=== PATIENT | female | born 1960 | race Caucasian/White ===

== ENCOUNTER 2024-10-23 14:15 | Inpatient (IN) ==
--- NOTE | 2024-10-23 15:31 | XRay Report ---
EXAM: Radiograph of the Chest 1 View INDICATION: Abdominal pain. Nausea, vomiting and cough. TECHNIQUE: Frontal view of the chest. COMPARISON: 10/06/2023 FINDINGS: Lungs and pleural spaces: No consolidation or pulmonary edema. No pleural effusion or pneumothorax. Heart: Stable prominent cardiac shadow accentuated by technique. Mediastinum: Small hiatal hernia noted. Bones/joints: No fracture, erosion or dislocation. Soft tissues: No abnormality noted. No radiopaque foreign body noted. Upper abdomen: No free air subjacent to the diaphragms. IMPRESSION: No acute cardiopulmonary disease. ACT 112: Negative or not required by law. Electronically signed by Mimi Hampton 10-23-2024 3:29 PM
[2024-10-23 15:32] LABS: Influenza A virus by PCR Negative (Neg); Influenza B virus by PCR Negative (Neg); RSV by PCR Negative (Neg); SARS CoV2 RNA(COVID-19) Ceph NEGATIVE (Negative)
[2024-10-23 15:51] LABS: Albumin Globulin Ratio 1.3 (0.9-2); Albumin Level 4.3 gm/dl (3.4-5.0); BUN Creatinine Ratio 13.5 (10-20); Bilirubin,Total 0.5 mg/dl (0.2-1.0); Calcium 9.5 mg/dl (8.6-10.3); Creatinine Clr Calc Pharmacy 40.6 ml/min; Globulin 3.2 gm/dl (2.5-4.0); Potassium 3.5 mmol/L (3.5-5.1); Total Protein 7.5 gm/dl (6.0-8.3)
[2024-10-23 15:55] LABS: Basophils # (auto) 0.04 K/uL (0.00-0.20); Basophils % (auto) 0.5 %; Eosinophils # (auto) 0.24 K/uL (0.00-0.50); Eosinophils % (auto) 2.9 %; Hematocrit (blood only) 35.5 % (37.0-47.0); Immature Granulocytes # (auto) 0.02 K/uL (0.01-0.20); Immature Granulocytes % (auto) 0.2 %; Mean Corpuscular Hgb Conc 33.8 g/dL (32.0-36.0); Mean Corpuscular Volume 88.8 fL (80.0-100.0); Monocytes # (auto) 0.65 K/uL (0.11-0.59); Monocytes % (auto) 7.8 %; Neutrophils # (auto) 5.87 K/uL (1.40-6.50); Neutrophils % (auto) 70.6 %; Platelet Count 261 K/uL (130-400); RDW Coefficient of Variation 12.9 % (11.5-14.5); RDW Standard Deviation 41.8 fL (36.4-46.3); White Blood Count 8.32 K/ul (4.8-10.8)
[2024-10-23 15:57] LABS: Troponin I High Sensitivity 9.2 pg/ml (0-14)
--- NOTE | 2024-10-23 16:52 | Ultrasound Report ---
EXAM: US Abdomen Limited Right Upper Quadrant INDICATION: Postprandial pain, nausea and vomiting. TECHNIQUE: Real-time ultrasound of the right upper quadrant with image documentation. COMPARISON: No relevant prior studies available. FINDINGS: Liver: Normal size and contour. Echogenic. No mass or ductal dilation. Gallbladder: Collapsed stone filled gallbladder. The wall is mildly thickened at 4 mm. The common bile duct is dilated to 9 mm. No pericholecystic fluid. Common bile duct: No significant abnormality noted. No stones. No dilation. Pancreas: Tail obscured by gas. Remainder appears normal. Right kidney: 10.1 cm long. Normal cortical thickness and echotexture. Question trace hydronephrosis. No mass or stone. IMPRESSION: 1. Collapsed stone filled gallbladder. Mild wall thickening could reflect incomplete distention or acute cholecystitis. HIDA scan would evaluate. 2. The common bile duct is dilated to 9 mm. 3. Question mild right hydronephrosis. 4. Hepatic steatosis. ACT 112: Negative or not required by law. Electronically signed by Mimi Hampton 10-23-2024 4:51 PM
--- NOTE | 2024-10-23 17:12 | Emergency Department Note ---
ED Visit Note I was consulted by the Advanced Practice Provider. I personally made/approved the management plan and take responsibility for the patient management. I performed a substantive portion of the visit. This includes the aspects of: -MDM. Patient has acute kidney injury. Hydration ordered. Surgery was consulted and medicine will be admitting the patient. -I independently interpreted the following studies: Gallbladder ultrasound reveals findings concerning for cholecystitis. Stones present. .
--- NOTE | 2024-10-23 17:14 | Electrocardiogram Report ---
Test Reason : Blood Pressure : */* mmHG Vent. Rate : 77 BPM Atrial Rate : 77 BPM P-R Int : 154 ms QRS Dur : 98 ms QT Int : 424 ms P-R-T Axes : 18 -28 74 degrees QTcB Int : 479 ms Sinus rhythm with occasional Premature ventricular complexes Moderate voltage criteria for LVH, may be normal variant Poor R wave progression, consider anterior [place] vs. lead placement vs. LVH Borderline ECG When compared with ECG of 06-Oct-2023 13:10, No significant change was found Confirmed by Cornell Zaidi ([id number]) on 10/23/2024 5:14:26 PM Referred By: REFERRED SELF Confirmed By: Cornell Zaidi
[2024-10-23] MEDS: SODIUM CHLORIDE 0.9% 1,000 ML IV ONE (17:24)
--- NOTE | 2024-10-23 17:29 | Emergency Department Note ---
ED Provider Note History of Present Illness Chief Complaint: Flu Like Symptoms Stated Complaint: VOMITING, FELT FAINT, COUGH, HOT/SWEATS Time Seen by Provider: 10/23/24 14:54 Source: patient Mode of arrival: ambulatory Limitations: no limitations Patient is a 64-year-old female who presents to the emergency department with complaints of an episode today where she started to feel faint, was having upper abdominal pain and was diaphoretic. Patient notes that after that episode she vomited once and since then has been feeling better. Patient notes that she has had ongoing episodes like that but is unsure what is causing it. Patient also notes that she has had a cough for approximately a week as well. Patient notes that she has a history of "gallbladder issues". Home Medications Medication Instructions Recorded Confirmed Type meclizine 12.5 mg tablet 12.5 mg PO BID PRN dizziness #14 10/06/23 10/23/24 Rx tabs amlodipine 10 mg-benazepril 40 mg 1 cap PO PM 10/23/24 10/23/24 History capsule carvedilol 25 mg tablet 25 mg PO PM 10/23/24 10/23/24 History chlorthalidone 25 mg tablet 25 mg PO PM 10/23/24 10/23/24 History Allergies Allergy/AdvReac Type Severity Reaction Status Date / Time No Known Allergies Allergy Unverified 10/23/24 15:09 Past Med/Surg History Problem List (Updated 10/23/24 @ 21:26 by STEFANIE Easley) Bicuspid aortic valve Hypertension DEBORAH (acute kidney injury) (Acute) Hydronephrosis, right Acute cholecystitis (Acute) Medical History (Updated 10/23/24 @ 21:26 by STEFANIE Easley) History of nephrolithiasis Surgical History (Updated 10/23/24 @ 18:18 by Christopher Cardenas MD) History of hysterectomy Social History Smoking Status: Never smoker Preferred Language: [place] Feels Safe at Home: Yes Physical Exam Vital Signs Vital Signs - 24 hr 10/23/24 14:18 10/23/24 15:10 10/23/24 15:36 Temperature 36.7 C Temperature Source Temporal Artery Scan Pulse Rate 77 Pulse Rate [Apical] 79 Pulse Strength Normal Respiratory Rate 17 16 Respiratory Effort / Characteristics Non-Labored Spontaneous Respiratory Depth Normal Respiratory Pattern Regular Blood Pressure 146/86 H Blood Pressure [Left Arm] 151/96 H Blood Pressure Mean 106 Blood Pressure Mean [Left Arm] 114 Blood Pressure Position Sitting Pulse Oximetry 97 96 98 Oxygen Delivery Method Room Air Room Air Sepsis Recent Fever Within 48 Hours No Sepsis New/Unexplained Change in Mental Status No Sepsis Action Taken by Nursing No Action Required 10/23/24 15:55 10/23/24 16:05 10/23/24 17:46 Temperature Temperature Source Pulse Rate 71 Pulse Rate [Apical] 71 76 Pulse Strength Respiratory Rate 18 18 Respiratory Effort / Characteristics Respiratory Depth Respiratory Pattern Blood Pressure Blood Pressure [Left Arm] 132/67 147/76 H Blood Pressure Mean Blood Pressure Mean [Left Arm] 88 99 Blood Pressure Position Pulse Oximetry 97 96 Oxygen Delivery Method Sepsis Recent Fever Within 48 Hours Sepsis New/Unexplained Change in Mental Status Sepsis Action Taken by Nursing 10/23/24 19:00 10/23/24 20:09 Temperature Temperature Source Pulse Rate Pulse Rate [Apical] 71 71 Pulse Strength Respiratory Rate 16 16 Respiratory Effort / Characteristics Respiratory Depth Respiratory Pattern Blood Pressure Blood Pressure [Left Arm] 147/79 H 148/76 H Blood Pressure Mean Blood Pressure Mean [Left Arm] 101 100 Blood Pressure Position Pulse Oximetry 97 98 Oxygen Delivery Method Sepsis Recent Fever Within 48 Hours Sepsis New/Unexplained Change in Mental Status Sepsis Action Taken by Nursing VITAL SIGNS - Vital signs and nursing notes were reviewed. GENERAL -64-year-old female appearing her stated age who is in no acute distress. Communicates well with provider and answers questions appropriately. HEAD - NC/AT. EYES - PERRL with EOMI bilaterally. LUNGS - Chest wall symmetric without accessory muscle use, intercostals retractions, or central cyanosis. Breath sounds clear throughout all root. No wheezes, rales, or rhonchi appreciated. CARDIAC - RRR with S1/S2. No murmur, rubs, or gallops appreciated. ABDOMEN - Abdominal contour without pulsations or visible masses. BS normoactive all four quadrants. No increased tenderness to palpation appreciated. No guarding. No rebound Tenderness. No palpable masses, hepatosplenomegaly, or ascites noted. NEUROLOGIC - Sensory intact to light touch throughout. PSYCH - A&Ox3 and cooperates fully with examiner. Pt is very pleasant and interacts well with examiner. Course Administered Medications Lactated Ringer's (Lr) 1,000 mls @ 80 mls/hr IV .[id number] KARY Stop: 10/24/24 18:29 Last Admin: 10/23/24 19:33 Dose: 80 mls/hr Documented By: LISANDRA Discontinued Medications Sodium Chloride (Nss) 1,000 mls @ 999 mls/hr IV .[id number] ONE Stop: 10/23/24 18:09 Last Infusion: 10/23/24 19:07 Dose: Infused Documented By: Admin: 10/23/24 17:24 Dose: 999 mls/hr Documented By: LISANDRA Piperacillin Sod/Tazobactam Sod (Zosyn) 4.5 gm in 100 mls @ 200 mls/hr IV 1900 KARY; Protocol Stop: 10/23/24 19:29 Last Infusion: 10/23/24 19:42 Dose: Infused Documented By: Admin: 10/23/24 18:59 Dose: 200 mls/hr Documented By: LISANDRA Medical Decision Making Differential Diagnosis Differential diagnoses includes gastritis, gastroenteritis, IBS, small bowel obstruction, pancreatitis, peritonitis, constipation, abdominal abcess, among others. Medical Records Attestation: I reviewed the patient's medical records. Home Medications was personally reviewed by me Laboratory Data Attestation: I reviewed the patient's lab results. 10/23/24 15:02 10/23/24 15:02 Lab Results 10/23/24 10/23/24 Range/Units 14:40 15:02 WBC 8.32 (4.8-10.8) K/ul RBC 4.00 L (4.20-5.40) M/uL Hgb 12.0 (12.0-16.0) g/dl Hct 35.5 L (37.0-47.0) % MCV 88.8 (80.0-100.0) fL MCH 30.0 (25.0-34.0) pg MCHC 33.8 (32.0-36.0) g/dL RDW Std Deviation 41.8 (36.4-46.3) fL RDW Coeff of Amber 12.9 (11.5-14.5) % Plt Count 261 (130-400) K/uL MPV 10.0 (9.4-12.4) fL Immature Gran % (Auto) 0.2 % Neut % (Auto) 70.6 % Lymph % (Auto) 18.0 % [place] % (Auto) 7.8 % Eos % (Auto) 2.9 % Baso % (Auto) 0.5 % Neut # (Auto) 5.87 (1.40-6.50) K/uL Lymph # (Auto) 1.50 (1.20-3.40) K/uL [place] # (Auto) 0.65 H (0.11-0.59) K/uL Eos # (Auto) 0.24 (0.00-0.50) K/uL Baso # (Auto) 0.04 (0.00-0.20) K/uL Immature Gran # (Auto) 0.02 (0.01-0.20) K/uL Sodium 139 (136-145) mmol/L Potassium 3.5 (3.5-5.1) mmol/L Chloride 101 (98-107) mmol/L Carbon Dioxide 30 (21-32) mmol/L Anion Gap 8 (3-11) BUN 26 H (6-23) mg/dl Creatinine 1.92 H (0.6-1.2) mg/dl Est Cr Clr Drug Dosing 40.6 ml/min eGFR 28.40 BUN/Creatinine Ratio 13.5 (10-20) Glucose 184 H (70-99(Fasting)) mg/dl Calcium 9.5 (8.6-10.3) mg/dl Total Bilirubin 0.5 (0.2-1.0) mg/dl AST 36 (13-39) U/L ALT 80 H (7-52) U/L Alkaline Phosphatase 132 H (34-104) U/L Troponin I High Sens 9.2 (0-14) pg/ml Total Protein 7.5 (6.0-8.3) gm/dl Albumin 4.3 (3.4-5.0) gm/dl Globulin 3.2 (2.5-4.0) gm/dl Albumin/Globulin Ratio 1.3 (0.9-2) Lipase 26 (11-82) U/L SARS-CoV-2 (PCR) NEGATIVE (Negative) Influenza Type A (PCR) Negative (Neg) Influenza Type B (PCR) Negative (Neg) RSV (RT-PCR) Negative (Neg) Imaging Data Radiologist's Impression: Chest X-Ray 10/23/24 14:22 EXAM: Radiograph of the Chest 1 View INDICATION: Abdominal pain. Nausea, vomiting and cough. TECHNIQUE: Frontal view of the chest. COMPARISON: 10/06/2023 FINDINGS: Lungs and pleural spaces: No consolidation or pulmonary edema. No pleural effusion or pneumothorax. Heart: Stable prominent cardiac shadow accentuated by technique. Mediastinum: Small hiatal hernia noted. Bones/joints: No fracture, erosion or dislocation. Soft tissues: No abnormality noted. No radiopaque foreign body noted. Upper abdomen: No free air subjacent to the diaphragms. IMPRESSION: No acute cardiopulmonary disease. ACT 112: Negative or not required by law. Electronically signed by Mimi Hampton 10-23-2024 3:29 PM Gallbladder Ultrasound 10/23/24 16:14 EXAM: US Abdomen Limited Right Upper Quadrant INDICATION: Postprandial pain, nausea and vomiting. TECHNIQUE: Real-time ultrasound of the right upper quadrant with image documentation. COMPARISON: No relevant prior studies available. FINDINGS: Liver: Normal size and contour. Echogenic. No mass or ductal dilation. Gallbladder: Collapsed stone filled gallbladder. The wall is mildly thickened at 4 mm. The common bile duct is dilated to 9 mm. No pericholecystic fluid. Common bile duct: No significant abnormality noted. No stones. No dilation. Pancreas: Tail obscured by gas. Remainder appears normal. Right kidney: 10.1 cm long. Normal cortical thickness and echotexture. Question trace hydronephrosis. No mass or stone. IMPRESSION: 1. Collapsed stone filled gallbladder. Mild wall thickening could reflect incomplete distention or acute cholecystitis. HIDA scan would evaluate. 2. The common bile duct is dilated to 9 mm. 3. Question mild right hydronephrosis. 4. Hepatic steatosis. ACT 112: Negative or not required by law. Electronically signed by Mimi Hampton 10-23-2024 4:51 PM Abdomen/Pelvis CT 10/23/24 17:46 EXAM: CT abd pelvis wo con CLINICAL HISTORY: ?R hydro obstructive DEBORAH TECHNIQUE: Non-contrast CT of the abdomen and pelvis was performed, with the following protocol: axial images, and reconstructed coronal and sagittal images. No intravenous contrast was administered. One of the following dose reduction techniques was utilized for this exam: Automated exposure control, adjustment of the mA and/or kV according to patient size, and use of iterative reconstruction. COMPARISON: US Gallbladder and MRI from the same day was reviewed. FINDINGS: A scan through the lower chest reveals a hiatal hernia. Abdomen: Liver: Normal in size, shape, and density. Isolated hypodense images in hepatic parenchyma, probably cystic, the largest of 13 mm in segment II. Already been seen in the US today. Gallbladder and Biliary System: Gallbladder with multiple lithiasis and mild adjacent fat stranding. Findings seen in the US from today. 9 mm common bile duct, with a hyperdense image of 6 mm in its distal sector, probably related to lithiasis visualized in the MRI of the day of the date. Pancreas: Pancreatic head, body, and tail are visualized and appear normal in size and density. No pancreatic masses or calcifications were noted. Spleen: Normal in size, shape, and density. No splenic lesions or masses were identified. Kidneys and Adrenal Glands: Both kidneys are normal in size, shape, and position. Cortical thickness is within normal limits. Non-obstructive lithiasis of 3 mm in the right middle caliceal group and one of 6 mm in the left lower caliceal group. No hydronephrosis. Adrenal glands are unremarkable. Appendix: The appendix is normal in size without alex appendiceal fat stranding and without an appendicolith. No evidence of appendiceal abscess or perforation. Pelvis: Urinary Bladder: Normal in contour and wall thickness. No intraluminal lesions. Uterus and ovaries: Not seen, correlate with patients history. Vagina: Normal in contour and wall thickness. Peritoneal and Retroperitoneal Structures: No free fluid or abnormal fluid collections were identified within the abdomen or pelvis. No lymphadenopathy was noted. Bowel: The visualized bowel loops are normal in caliber and appearance. No evidence of bowel obstruction or wall thickening. Isolated diverticula in the colon without signs of complication. Bones and Soft Tissues: Mild signs of lumbar spondylosis. No fractures or abnormal masses were identified. IMPRESSION: 1. Gallbladder with multiple lithiasis and mild adjacent fat stranding. Findings seen in the US from today. 2. 9 mm common bile duct, with a hyperdense image of 6 mm in its distal sector, probably related to lithiasis visualized in the MRI of the day of the date. 3. Isolated hepatic cysts. [facility] ER was called at [phone] at 6:52 PM BEHAVIORAL HEALTH TECHNICIAN, 10/23/2024, and Yohana (monitor correspondence review clerk) was informed regarding the presence of important medical findings in the report. She will inform the Doctor about the findings. Electronically signed by Huy Hernandez 10-23-2024 7:54 PM Cholangiopancreatography MRI 10/23/24 17:50 EXAM: MR MRCP CLINICAL HISTORY: RUQ abdominal pain, vomiting, acute cholecystitis on ultrasound, questioning choledoco per ordering doctor, difficulty holding breath through scans, sent to [facility] TECHNIQUE: Multiplanar multisequence magnetic resonance imaging of the abdomen without intravenous contrast in MRCP technique. COMPARISON: CT abdomen pelvis and US GB on the same day 10/23/2024 were reviewed. FINDINGS: Liver: Slightly enlarged measuring 17.0 cm craniocaudally. Multiple T2 hyperintense foci scattered in the liver, some lobulated measuring up to 1.2 cm. Homogeneous signal intensity on T2-weighted images. Gallbladder: Normal size and wall thickness. Multiple gallbladder stones with irregular slightly thickened wall. Bile Ducts: Mild intrahepatic and extrahepatic bile duct ectasia. Common bile duct is mildly dilated (9.4 mm) with a signal void in its mid-segment measuring 6 mm Pancreas: Normal size and contour. Homogeneous signal intensity on T2-weighted images. No masses or cystic lesions. Pancreatic Duct: Pancreatic duct is normal in caliber. No evidence of ductal dilatation or filling defects. Spleen: Normal size and appearance. Homogeneous signal intensity. Kidneys: Normal size, shape, and position of both kidneys. Homogeneous signal intensity on T2-weighted images. No renal stones, masses, or hydronephrosis. Small cortical cyst in the left. Adrenal Glands: Normal size and morphology bilaterally. No adrenal masses. Surrounding Structures: No evidence of free fluid or abnormal fluid collections in the abdomen. Normal appearance of the visualized bowel loops. Multilevel disc herniations. IMPRESSION: 1. Choledocholithiasis with biliary ectasia. 2. Gallbladder stones with irregular and slightly thickened diego. Findings are suggestive of acute cholecystitis. For clinical correlation. 3. Multiple T2 hyperintense foci scattered in the liver, some lobulated measuring up to 1.2 cm, could be cyst, for further evaluation if clinically warranted. [facility] ER was called at [phone] at 6:39 PM BEHAVIORAL HEALTH TECHNICIAN, 10/23/2024 and Suma Rosado was informed regarding the presence of significant medical findings in the report. Electronically signed by Huy Hernandez 10-23-2024 7:44 PM MDM Narrative Patient is a 64-year-old female who presents to the emergency department with complaints of an episode today where she started to feel faint, was having upper abdominal pain and was diaphoretic. Patient notes that after that episode she vomited once and since then has been feeling better. Patient notes that she has had ongoing episodes like that but is unsure what is causing it. Patient also notes that she has had a cough for approximately a week as well. Patient notes that she has a history of "gallbladder issues". Patient was evaluated by myself and findings were noted in physical exam above. Patient was ordered IV placement, lab work, upper respiratory viral panel, an EKG, chest x-ray and a CT of the abdomen and pelvis. Patient's lab work returned and showed her CBC to be unremarkable, however the patient did have an elevated BUN of 26 and an elevated creatinine of 1.92. Patient's LFTs were also elevated with an ALT of 80 and alk phos of 132. The patient's total bilirubin was normal at 0.5. The patient's chest x-ray was completed and interpreted by radiology to show no acute cardiopulmonary disease. Patient's EKG had the patient in a normal sinus rhythm. Patient had a negative troponin. Because the patient's creatinine level was elevated 1.92 and her clinical presentation was suggestive of a complication with her gallbladder, the CT was canceled and the patient was ordered an ultrasound of the gallbladder. Patient's gallbladder ultrasound was interpreted by radiology to show a collapsed stone filled gallbladder with some mild wall thickening that could reflect an acute cholecystitis. The patient's common bile duct was also dilated to 9 mm. Because of these findings I did reach out to Dr. Gunn who is on-call for general surgery. Dr. Gunn reviewed the patient's ultrasound and I gave him a full report of the patient's chief complaint, current status, and lab values and he agreed that the patient would likely need her gallbladder removed however he wanted her to be admitted under the medical services and he would consult on the patient's case. Dr. Gunn suggested that the patient have an MRCP completed as well. Patient was ordered an MRCP and I reached out to the [facility] hospitalist group to admit the patient to the hospital. I spoke with Dr. Ahuja, who was given a full report of the patient's chief complaint, current status, lab values and ultrasound findings as well as the consult that I had with Dr. Gunn. Dr. Ahuja suggested that I also ordered the patient a CT to evaluate possible hydronephrosis that was potentially seen on the ultrasound. Patient CT did not show any obstructing kidney stones. Patient's MRCP was also suggestive of an acute cholecystitis. Please refer to [facility] hospitalist group's documentation for further evaluation and management of this patient. The patient will be admitted to the hospitalist under their service. Impression Acute cholecystitis, DEBORAH (acute kidney injury) Discharge Plan Visit Data Chief Complaint: Flu Like Symptoms Stated Complaint: VOMITING, FELT FAINT, COUGH, HOT/SWEATS ED Provider: [facility] ED Midlevel Provider: Suma Heredia Discharge Problem: Acute cholecystitis, DEBORAH (acute kidney injury) Patient Disposition: Admitted As Inpatient Discharge Instructions Interventions: ED Discharge Assessment Last Done: 10/23/24 20:28 Prescriptions Prescriptions: No Action meclizine 12.5 mg tablet 12.5 mg PO BID PRN (Reason: dizziness) Qty: 14 0RF carvedilol 25 mg tablet 25 mg PO PM chlorthalidone 25 mg tablet 25 mg PO PM amlodipine-benazepril 10-40 mg capsule 1 cap PO PM
--- NOTE | 2024-10-23 18:00 | History & Physical Report ---
Date of Service October 23, 2024 Assessment & Plan (1) Acute cholecystitis: Plan: Acute cholecystitis, choledocho Patient presents with nausea, chills, and right upper quadrant pain. Worse after eating pizza of 1 day, has had intermittent pain with meals in the p revious few months Right upper quadrant ultrasound: CBD dilation 9 mm, collapsed stone filled gallbladder with possible incomplete distention versus acute cholecystitis. CBD dilated at 9 mm Total bilirubin is normal, no AST elevation, ALT is 80 Given CBD dilation but with normal bilirubin and LFTs less than 2 times normal patient is moderate low risk category. Was discussed with general surgery. Recommended for inpatient admission via medicine, and MRCP as inpatient. If transfer for ERCP is required patient would prefer [facility]. N.p.o. Zosyn N.p.o., IV FM 1 L bolus given due DEBORAH and will continue 80 cc/h overnight. Patient is not septic on admission Continue Tylenol, morphine, nausea for symptomatic control RCRI is 0 points, 3.9% risk. Patient may have an underlying DEBORAH which should be volume optimized if prerenal poor intake with acute cholecystitis, versus managed by urology if any obstructive findings are seen on CT. CT is pending. (2) DEBORAH (acute kidney injury): Plan: DEBORAH ? Prerenal with acute cholecystitis versus obstructive as some right hydronephrosis was seen on her gallbladder ultrasound. She does have a history of obstructive kidney stones for which she has followed with [facility] urology in the past CTA/P Noncon pending to evaluate for nephrolithiasis/obstruction. Creatinine baseline around 1. Creatinine 1.92 on admission IV FM as noted If evidence of obstructive nephrolithiasis is seen then will consult urology (3) History of nephrolithiasis: (4) Hydronephrosis, right: (5) Bicuspid aortic valve: Plan: Bicuspid aortic valve Patient reports she had a history of intermittent noncardiac chest pain and bicuspid aortic valve. She does follow with [facility] cardiology Dr. Almazan She reports she had a stress test 2 years ago which was completely normal. No history of heart failure She is able to walk and go about normal activities with at least 4 METS with no limiting angina, chest pain or chest pressure EKG is pending Hypertension AmlodipineBenzePrO and chlorthalidone held for DEBORAH Carvedilol continued (6) Hypertension: Plan DVT prophylaxis: Pharmacoprophylaxis held pending surgical evaluation. SCDs. If no surgical intervention anticipated in 12 to 24 hours and will treat with heparin every 8 hours subcu until renal function improves CODE STATUS: Full code Diet: N.p.o. History of Present Illness Primary Care Provider: Sylvia Davina Mckinney is a 64-year-old female with a past medical history of hypertension, biscupid AV, kidney stones, and FHX of gallbladder stones who presents with epigastric/periumbilical/RUQ pain after eating pizza. [facility] doctor sent Faye in for evaluation. had a sore throat and cough for a few weeks which had been improving, but then after eating pizza after congregational had 'terrible belly button pain' and then broke out in a sweat and had dizziness, nausea, and umbilical + RUQ abdominal pain severe enough to make her feel like she was going to pass out. Vomited x1 nonbloody. Did no pass out. No chest pain. no chest pressure. +RUQ and epigastric pain. Has a history of hiatal hernia. Has had pain intermittently for several months after meals. History of kidney stones, w/ hx of stent placement and stone removal in the past. [facility] hospital system. Hx htn. Took no medications this morning No history of CA or angina. Told she had a bicuspid aorta. Had a normal stress test [address] [facility] [place] [facility]. Never had surgery before Sx: 2x c/s, hysterectomy 1986, and kidney procedures. would prefer [facility] if needed for transfer for ERCP Medical History: Reviewed Medications: Reviewed Surgical History: Reviewed Family history: Reviewed Allergies: Reviewed. NKDA Social History: NO tobacco use. Rare social etoh use. Code Status: Full Code Allergies Allergy/AdvReac Type Severity Reaction Status Date / Time No Known Allergies Allergy Unverified 10/23/24 15:09 Home Medications Medication Instructions Recorded Confirmed Type meclizine 12.5 mg tablet 12.5 mg PO BID PRN dizziness #14 10/06/23 10/23/24 Rx tabs amlodipine 10 mg-benazepril 40 mg 1 cap PO PM 10/23/24 10/23/24 History capsule carvedilol 25 mg tablet 25 mg PO PM 10/23/24 10/23/24 History chlorthalidone 25 mg tablet 25 mg PO PM 10/23/24 10/23/24 History Past Med/Surg History Problem List (Updated 10/23/24 @ 18:18 by Christopher Cardenas MD) Bicuspid aortic valve Hypertension DEBORAH (acute kidney injury) Hydronephrosis, right Acute cholecystitis Medical History (Updated 10/23/24 @ 18:18 by Christopher Cardenas MD) History of nephrolithiasis Surgical History (Updated 10/23/24 @ 18:18 by Christopher Cardenas MD) History of hysterectomy Social History Smoking Status: Never smoker Preferred Language: Guatemalan Feels Safe at Home: Yes Physical Exam Physical Exam: General: A&Ox3. NAD. Cooperative. HEENT: Atraumatic, normocephalic. PERLAA. Vision/hearing grossly intact Pulm: CTAB A&P. -wheezes, -rales, -rhonchi. Symmetrical chest rise. No increased work of breathing. No respiratory distress. Cardiac: RRR, soft sm. Radial pulses intact and symmetrical. Abdominal: Mild RUQ, epigastric, supraumbilical TTP. no rebound/guarding. NO CVA TENDERNESS on exam. Results & Data Results & Data Vital Signs (Past 12 Hours) Vital Signs Temp Pulse Pulse Resp BP BP Pulse Ox 10/23/24 17:46 76 18 147/76 H 96 10/23/24 16:05 71 18 132/67 97 10/23/24 15:55 71 10/23/24 15:36 79 16 151/96 H 98 10/23/24 15:10 96 10/23/24 14:18 36.7 C 77 17 146/86 H 97 O2 Del Method 10/23/24 17:46 10/23/24 16:05 10/23/24 15:55 10/23/24 15:36 10/23/24 15:10 Room Air 10/23/24 14:18 Room Air PG Care Time/CCT Total # of Minutes Spent Total Time Spent with Patient: Total time spent is greater than 50% in coordination of care (as documented) at patient's floor/unit and/or counseling patient: Coding Level of Care Code 32892 INT INP/OBS CARE 3/75MIN Diagnoses Acute cholecystitis K81.0 DEBORAH (acute kidney injury) N17.9 History of nephrolithiasis Z87.442 Hydronephrosis, right N13.30 Bicuspid aortic valve Q23.81 Hypertension I10
[2024-10-23] MEDS ORDERED: NALOXONE HCL 0.4 MG/1 ML VIAL/CARP IV PRN (18:24)
[2024-10-23] MEDS ORDERED: ONDANSETRON INJ 2 MG/ML 2 ML VIAL IV PRN (18:24)
[2024-10-23] MEDS ORDERED: ACETAMINOPHEN 1,000 MG/100 ML VIAL IV PRN (18:24)
[2024-10-23] MEDS ORDERED: MoRPHine SULFATE 2 MG/ML CARP IV PRN (18:24)
[2024-10-23] MEDS ORDERED: PIPERACILLIN/TAZOBACTAM 4.5 GM/100 ML BAG IV SCH (18:30)
[2024-10-23] MEDS: PIPERACILLIN/TAZOBACTAM 4.5 GM/100 ML BAG IV SCH ×2 (18:59→23:41)
[2024-10-23] MEDS: LACTATED RINGER'S 1,000 ML IV SCH (19:33)
--- NOTE | 2024-10-23 19:44 | Magnetic Resonance Report ---
EXAM: MR MRCP CLINICAL HISTORY: RUQ abdominal pain, vomiting, acute cholecystitis on ultrasound, questioning choledoco per ordering doctor, difficulty holding breath through scans, sent to [facility] TECHNIQUE: Multiplanar multisequence magnetic resonance imaging of the abdomen without intravenous contrast in MRCP technique. COMPARISON: CT abdomen pelvis and US GB on the same day 10/23/2024 were reviewed. FINDINGS: Liver: Slightly enlarged measuring 17.0 cm craniocaudally. Multiple T2 hyperintense foci scattered in the liver, some lobulated measuring up to 1.2 cm. Homogeneous signal intensity on T2-weighted images. Gallbladder: Normal size and wall thickness. Multiple gallbladder stones with irregular slightly thickened wall. Bile Ducts: Mild intrahepatic and extrahepatic bile duct ectasia. Common bile duct is mildly dilated (9.4 mm) with a signal void in its mid-segment measuring 6 mm Pancreas: Normal size and contour. Homogeneous signal intensity on T2-weighted images. No masses or cystic lesions. Pancreatic Duct: Pancreatic duct is normal in caliber. No evidence of ductal dilatation or filling defects. Spleen: Normal size and appearance. Homogeneous signal intensity. Kidneys: Normal size, shape, and position of both kidneys. Homogeneous signal intensity on T2-weighted images. No renal stones, masses, or hydronephrosis. Small cortical cyst in the left. Adrenal Glands: Normal size and morphology bilaterally. No adrenal masses. Surrounding Structures: No evidence of free fluid or abnormal fluid collections in the abdomen. Normal appearance of the visualized bowel loops. Multilevel disc herniations. IMPRESSION: 1. Choledocholithiasis with biliary ectasia. 2. Gallbladder stones with irregular and slightly thickened diego. Findings are suggestive of acute cholecystitis. For clinical correlation. 3. Multiple T2 hyperintense foci scattered in the liver, some lobulated measuring up to 1.2 cm, could be cyst, for further evaluation if clinically warranted. [facility] ER was called at [phone] at 6:39 PM VENEER MANUFACTURER, 10/23/2024 and Suma Rosado was informed regarding the presence of significant medical findings in the report. Electronically signed by Huy Hernandez 10-23-2024 7:44 PM
--- NOTE | 2024-10-23 19:54 | CT Scan Report ---
EXAM: CT abd pelvis wo con CLINICAL HISTORY: ?R hydro obstructive DEBORAH TECHNIQUE: Non-contrast CT of the abdomen and pelvis was performed, with the following protocol: axial images, and reconstructed coronal and sagittal images. No intravenous contrast was administered. One of the following dose reduction techniques was utilized for this exam: Automated exposure control, adjustment of the mA and/or kV according to patient size, and use of iterative reconstruction. COMPARISON: US Gallbladder and MRI from the same day was reviewed. FINDINGS: A scan through the lower chest reveals a hiatal hernia. Abdomen: Liver: Normal in size, shape, and density. Isolated hypodense images in hepatic parenchyma, probably cystic, the largest of 13 mm in segment II. Already been seen in the US today. Gallbladder and Biliary System: Gallbladder with multiple lithiasis and mild adjacent fat stranding. Findings seen in the US from today. 9 mm common bile duct, with a hyperdense image of 6 mm in its distal sector, probably related to lithiasis visualized in the MRI of the day of the date. Pancreas: Pancreatic head, body, and tail are visualized and appear normal in size and density. No pancreatic masses or calcifications were noted. Spleen: Normal in size, shape, and density. No splenic lesions or masses were identified. Kidneys and Adrenal Glands: Both kidneys are normal in size, shape, and position. Cortical thickness is within normal limits. Non-obstructive lithiasis of 3 mm in the right middle caliceal group and one of 6 mm in the left lower caliceal group. No hydronephrosis. Adrenal glands are unremarkable. Appendix: The appendix is normal in size without alex appendiceal fat stranding and without an appendicolith. No evidence of appendiceal abscess or perforation. Pelvis: Urinary Bladder: Normal in contour and wall thickness. No intraluminal lesions. Uterus and ovaries: Not seen, correlate with patients history. Vagina: Normal in contour and wall thickness. Peritoneal and Retroperitoneal Structures: No free fluid or abnormal fluid collections were identified within the abdomen or pelvis. No lymphadenopathy was noted. Bowel: The visualized bowel loops are normal in caliber and appearance. No evidence of bowel obstruction or wall thickening. Isolated diverticula in the colon without signs of complication. Bones and Soft Tissues: Mild signs of lumbar spondylosis. No fractures or abnormal masses were identified. IMPRESSION: 1. Gallbladder with multiple lithiasis and mild adjacent fat stranding. Findings seen in the US from today. 2. 9 mm common bile duct, with a hyperdense image of 6 mm in its distal sector, probably related to lithiasis visualized in the MRI of the day of the date. 3. Isolated hepatic cysts. [facility] ER was called at [phone] at 6:52 PM PLANT UT[employer] PERSON, 10/23/2024, and Yohana (monitor order clerk) was informed regarding the presence of important medical findings in the report. She will inform the Doctor about the findings. Electronically signed by Huy Hernandez 10-23-2024 7:54 PM
--- NOTE | 2024-10-24 00:33 | Discharge Summary ---
Date of Service October 24, 2024 Admission HPI Per Admitting Provider Faye is a 64-year-old female with a past medical history of hypertension, biscupid AV, kidney stones, and FHX of gallbladder stones who presents with epigastric/periumbilical/RUQ pain after eating pizza. [facility] doctor sent Faye in for evaluation. had a sore throat and cough for a few weeks which had been improving, but then after eating pizza after scientology had 'terrible belly button pain' and then broke out in a sweat and had dizziness, nausea, and umbilical + RUQ abdominal pain severe enough to make her feel like she was going to pass out. Vomited x1 nonbloody. Did no pass out. No chest pain. no chest pressure. +RUQ and epigastric pain. Has a history of hiatal hernia. Has had pain intermittently for several months after meals. History of kidney stones, w/ hx of stent placement and stone removal in the past. [facility]. Hx htn. Took no medications this morning No history of DE or angina. Told she had a bicuspid aorta. Had a normal stress test 2 years ago. [facility]. Never had surgery before Sx: 2x c/s, hysterectomy 1986, and kidney procedures. would [place] [facility] if needed for transfer for ERCP Medical History: Reviewed Medications: Reviewed Surgical History: Reviewed Family history: Reviewed Allergies: Reviewed. NKDA Social History: NO tobacco use. Rare social etoh use. Code Status: Full Code Principal Diagnosis Choledocholithiasis Discharge Data Allergies Allergy/AdvReac Type Severity Reaction Status Date / Time No Known Allergies Allergy Unverified 10/23/24 15:09 Consultations 10/23/24 17:46 ED Decision to Admit Stat 10/23/24 21:32 Consult General Surgery Routine Ordered Studies 10/23/24 16:14 US gallbladder Stat 10/23/24 17:46 CT Abd and Pelvis [CT abd pelvis wo con] Stat 10/23/24 17:50 MR MRCP Stat Hospital Course (1) Acute cholecystitis: Acute cholecystitis, choledocholithiasis Patient presents with nausea, chills, and right upper quadrant pain. Worse after eating pizza of 1 day, has had intermittent pain with meals in the previous few months Right upper quadrant ultrasound: CBD dilation 9 mm, collapsed stone filled gallbladder with possible incomplete distention versus acute cholecystitis. CBD dilated at 9 mm Total bilirubin is normal, no AST elevation, ALT is 80 Given CBD dilation but with normal bilirubin and LFTs less than 2 times normal patient is moderate low risk category. Was discussed with general surgery. Recommended for inpatient admission via medicine - MRCP with Choledocholithiasis with biliary ectasia. Gallbladder stones, slightly thickened diego-> consistent with acute cholecystis. Multiple T2 hyperintense foci scattered in the liver, some lobulated measuring up to 1.2 cm N.p.o. Zosyn N.p.o., IV FM 1 L bolus given due DEBORAH and will continue 80 cc/h overnight. Patient is not septic on admission Continue Tylenol, morphine, nausea for symptomatic control RCRI is 0 points, 3.9% risk. Patient may have an underlying DEBORAH which should be volume optimized if prerenal poor intake with acute cholecystitis, DEBORAH ? Prerenal with acute cholecystitis versus obstructive as some right hydronephrosis was seen on her gallbladder ultrasound. She does have a history of obstructive kidney stones for which she has followed with [facility] urology in the past CTA/P Noncon pending to evaluate for nephrolithiasis/obstruction with Non- obstructive lithiasis of 3 mm in the right middle caliceal group and one of 6 mm in the left lower caliceal group. No hydronephrosis. Creatinine baseline around 1. Creatinine 1.92 on admission IV FM as noted Bicuspid aortic valve Patient reports she had a history of intermittent noncardiac chest pain and bicuspid aortic valve. She does follow with [facility] cardiology Dr. Almazan She reports she had a stress test 2 years ago which was completely normal. No history of heart failure She is able to walk and go about normal activities with at least 4 METS with no limiting angina, chest pain or chest pressure EKG with NSR, poor R wave progression-> unchanged from prior in 2022 Hypertension AmlodipineBenzePrO and chlorthalidone held for DEBORAH Carvedilol continued Plan DVT prophylaxis: Pharmacoprophylaxis held possible procedure CODE STATUS: Full code Diet: N.p.o. (2) Hydronephrosis, right: (3) DEBORAH (acute kidney injury): (4) Hypertension: (5) Bicuspid aortic valve: Total Time Total Time Spent Total Time Spent (In Minutes): See attending attestation Discharge Plan Discharge Items Patient Disposition: Transfer Acute Care Hospital Reason For Visit: ACUTE CHOLECYSTITIS, DEBORAH, ?CHOLEDOCO Discharge Diagnosis: Choledocholithiasis Activity: Per Instructions section Non-emergency contact: Primary Care Provider Call non-emergency contact if: you have any medication questions Follow-up/Referrals: Sylvia Ghosh [Primary Care Provider] - Diet: Nothing by Mouth Addtl Attending Provider Instructions: Acute cholecystitis, choledocholithiasis Patient presents with nausea, chills, and right upper quadrant pain. Worse after eating pizza of 1 day, has had intermittent pain with meals in the previous few months Right upper quadrant ultrasound: CBD dilation 9 mm, collapsed stone filled gallbladder with possible incomplete distention versus acute cholecystitis. CBD dilated at 9 mm Total bilirubin is normal, no AST elevation, ALT is 80 Given CBD dilation but with normal bilirubin and LFTs less than 2 times normal patient is moderate low risk category. Was discussed with general surgery. Recommended for inpatient admission via medicine - MRCP with Choledocholithiasis with biliary ectasia. Gallbladder stones, slightly thickened diego-> consistent with acute cholecystis. Multiple T2 hyperintense foci scattered in the liver, some lobulated measuring up to 1.2 cm N.p.o. Zosyn- last dose 10/23 2330 N.p.o., IV FM 1 L bolus given due DEBORAH and will continue 80 cc/h overnight. Patient is not septic on admission Continue Tylenol, morphine, nausea for symptomatic control RCRI is 0 points, 3.9% risk. Patient may have an underlying DEBORAH which should be volume optimized if prerenal poor intake with acute cholecystitis, DEBORAH ? Prerenal with acute cholecystitis versus obstructive as some right hydronephrosis was seen on her gallbladder ultrasound. She does have a history of obstructive kidney stones for which she has followed with [facility] urology in the past CTA/P Noncon pending to evaluate for nephrolithiasis/obstruction with Non-obstructive lithiasis of 3 mm in the right middle caliceal group and one of 6 mm in the left lower caliceal group. No hydronephrosis. Creatinine baseline around 1. Creatinine 1.92 on admission IV FM as noted Bicuspid aortic valve Patient reports she had a history of intermittent noncardiac chest pain and bicuspid aortic valve. She does follow with [facility] cardiology Dr. Almazan She reports she had a stress test 2 years ago which was completely normal. No history of heart failure She is able to walk and go about normal activities with at least 4 METS with no limiting angina, chest pain or chest pressure EKG with NSR, poor R wave progression-> unchanged from prior in 2022 Hypertension AmlodipineBenzePrO and chlorthalidone held for DEBORAH Carvedilol continued Plan DVT prophylaxis: Pharmacoprophylaxis held possible procedure CODE STATUS: Full code Diet: N.p.o. Pending Studies at Discharge: No Stand-Alone Forms: My [facility] Skilled Items Patient informed of condition?: Yes DNR: No Discharge Level of Care: Other Communicable Disease: No Discharge Prognosis: Stable Lines: Peripheral IV Urinary Catheter: No Medications and DC Order Prescriptions: New morphine 2 mg/mL Syringe 2 mg IV Q3H PRNQty: 0 0RF naloxone 0.4 mg/mL Solution 0.4 mg IV Q5M PRNQty: 0 0RF ondansetron HCl (PF) 4 mg/2 mL Solution 4 mg IV Q4H PRNQty: 0 0RF Held meclizine 12.5 mg tablet 12.5 mg PO BID PRN (Reason: dizziness) Qty: 14 0RF Hold Instructions: Resume as needed carvedilol 25 mg tablet 25 mg PO PM Hold Instructions: Resume as BP tolerates and not NPO chlorthalidone 25 mg tablet 25 mg PO PM Hold Instructions: Resume with resolution of DEBORAH amlodipine-benazepril 10-40 mg capsule 1 cap PO PM Hold Instructions: Resume with resolution of DEBORAH Discharge Orders: Discharge Order (Routine); Ordered 10/24/24 Ordered By: Kacey Sparks Admission Data Admit Date/Time: 10/23/24 18:24 Attending Provider: Christopher Cardenas Admit Provider: Christopher Cardenas Primary Care Provider: Sylvia Ghosh Other Providers: Christopher Cardenas; Ez Gunn Resident Activity Tracking Resident Involvement: Resident Care Provided Care Provided: Adult Hospital Medicine
== END 2024-10-24 02:19 | disposition short-term general hospital (02) | DRG 445 ==
LOC: ED 14:15 → 3W 18:24